=== PATIENT | female | born 1995 | race Caucasian/White ===

== ENCOUNTER 2017-08-03 12:35 | Emergency (ER) | payer OTHER ==
[~2017-08-03] VITALS: Ht 154.9 cm; Wt 63.5 kg
[~2017-08-03 12:35] MED LIST: AMOXICILLIN 50500 MG PO; LORATIDINE 10 M10 M1 PO; PROAIR HFA8.5 GM INH; PROMETHAZINE V473 ML PO
[2017-08-03] MEDS ORDERED: NEXPLANON68 MG SUBQ (12:44)
[2017-08-03 13:28] LABS: URINE BILIRUBIN NEGATIVE (Negative); URINE BLOOD TRACE (Negative); URINE CLARITY CLEAR; URINE COLOR YELLOW; URINE GLUCOSE-RANDOM NEGATIVE (Negative); URINE KETONES NEGATIVE (Negative); URINE NITRITE-REFLEX NEGATIVE (Negative); URINE PROTEIN NEGATIVE (Negative); URINE UROBILINOGEN 0.2 E.U./dl (0.2-1.0)
[2017-08-03 13:32] LABS: URINE LEUKOCYTES-REFLEX 2+ (Negative)
[2017-08-03] MEDS ORDERED: BACTRIM DS TAB1 EACH PO (13:36)
[2017-08-03] MEDS ORDERED: NAPROSYN500 MG PO (13:36)
[2017-08-03] MEDS ORDERED: FLEXERIL PO (13:36)
[2017-08-03 13:39] LABS: SQUAMOUS >10 Many /LPF (0-3)
[2017-08-03 13:41] LABS: BACTERIA-REFLEX 1-9 Few /HPF (None Seen); CASTS None Seen /LPF (None Seen); MUCUS 4-6 Moderate strn/LPF (None Seen); URINE RBC 3-10 Few /HPF (0-2); URINE WBC-REFLEX 6-15 Few /HPF (0-5)
[2017-08-03 13:42] LABS: CRYSTALS None Seen /LPF (None Seen)
[2017-08-03 13:52] VITALS: BP 128/64
== END 2017-08-03 13:53 | disposition home or self-care (01) ==
LOC: M.ERS 12:35
PROVIDERS: Nurse Practitioner Family
DX: N30.90 Cystitis, unspecified without hematuria (principal); S39.012A Strain of muscle, fascia and tendon of lower back, initial encounter; A59.9 Trichomoniasis, unspecified; Z90.89 Acquired absence of other organs; X50.0XXA Overexertion from strenuous movement or load, initial encounter; Y93.89 Activity, other specified; Y92.89 Other specified places as the place of occurrence of the external cause; Y99.8 Other external cause status

== ENCOUNTER 2017-11-08 17:48 | Emergency (ER) | payer OTHER ==
[~2017-11-08] VITALS: Ht 154.9 cm; Wt 59.0 kg
[~2017-11-08 17:48] MED LIST changes: +BACTRIM DS TAB1 EACH PO; +FLEXERIL PO; +NAPROSYN500 MG PO; +NEXPLANON68 MG SUBQ
[2017-11-08 18:10] LABS: ABSOLUTE BASOPHILS 0.1 thou/uL (0.0-0.2); ABSOLUTE EOSINOPHILS 0.2 thou/uL (0.0-0.7); ABSOLUTE LYMPHOCYTES 3.4 thou/uL (0.8-5.3); ABSOLUTE MONOCYTES 0.7 thou/uL (0.0-1.2); ABSOLUTE NEUTROPHILS 5.1 thou/uL (1.6-8.1); BASOPHILS 0.6 %; HEMATOCRIT 43.8 % (37.0-47.0); HEMOGLOBIN 14.8 gm/dL (12.0-15.0); LYMPHOCYTES 35.7 %; MCH 27.9 pg (26.0-34.0); MCHC 33.8 g/dL (28.0-37.0); MCV 82.4 fL (80.0-100.0); MONOCYTES 7.3 %; MPV 9.2 fl. (7.2-11.1); NUCLEATED RBCS 0 /100WBC; PLATELET COUNT* 296 thou/uL (150-400); POLYS 54.4 %; RBC 5.31 mil/uL (4.20-5.00); RDW-CV 13.2 % (10.5-14.5); WBC 9.5 thou/uL (4.0-11.0)
[2017-11-08 18:15] LABS: URINE BILIRUBIN NEGATIVE (Negative); URINE BLOOD 3+ (Negative); URINE CLARITY CLEAR; URINE COLOR YELLOW; URINE GLUCOSE-RANDOM NEGATIVE (Negative); URINE KETONES NEGATIVE (Negative); URINE LEUKOCYTES-REFLEX NEGATIVE (Negative); URINE NITRITE-REFLEX NEGATIVE (Negative); URINE PROTEIN NEGATIVE (Negative); URINE UROBILINOGEN 0.2 E.U./dl (0.2-1.0)
[2017-11-08 18:15] LABS: CALCIUM 8.3 mg/dL (8.5-10.1); CREATININE 0.6 mg/dL (0.6-1.3); POTASSIUM 3.5 mmol/L (3.5-5.1)
[2017-11-08 18:20] LABS: ALBUMIN 3.8 g/dL (3.4-5.0); TOTAL BILIRUBIN 0.4 mg/dL (<0.1-1.0)
[2017-11-08 18:35] LABS: CASTS None Seen /LPF (None Seen); CRYSTALS None Seen /LPF (None Seen); SQUAMOUS 0-3 Few /LPF (0-3); URINE RBC 3-10 Few /HPF (0-2); URINE WBC-REFLEX 0-5 Rare /HPF (0-5)
[2017-11-08 18:45] LABS: BACTERIA-REFLEX 1-9 Few /HPF (None Seen)
[2017-11-08 19:03] VITALS: BP 127/87
== END 2017-11-08 19:03 | disposition home or self-care (01) ==
LOC: M.ERS 17:48
PROVIDERS: Physician Assistant
DX: N93.9 Abnormal uterine and vaginal bleeding, unspecified (principal); Z91.010 Allergy to peanuts

== ENCOUNTER 2018-03-07 23:07 | Emergency (ER) | payer OTHER ==
[~2018-03-07] VITALS: Ht 154.9 cm; Wt 68.0 kg
[2018-03-08 00:54] LABS: ABSOLUTE BASOPHILS 0.1 thou/uL (0.0-0.2); ABSOLUTE EOSINOPHILS 0.2 thou/uL (0.0-0.7); ABSOLUTE LYMPHOCYTES 3.4 thou/uL (0.8-5.3); ABSOLUTE MONOCYTES 0.7 thou/uL (0.0-1.2); ABSOLUTE NEUTROPHILS 6.1 thou/uL (1.6-8.1); BASOPHILS 0.5 %; EOSINOPHILS 2.4 %; HEMATOCRIT 41.2 % (37.0-47.0); HEMOGLOBIN 13.8 gm/dL (12.0-15.0); LYMPHOCYTES 32.3 %; MCH 27.6 pg (26.0-34.0); MCHC 33.4 g/dL (28.0-37.0); MCV 82.6 fL (80.0-100.0); MPV 8.7 fl. (7.2-11.1); NUCLEATED RBCS 0 /100WBC; PLATELET COUNT* 311 thou/uL (150-400); POLYS 57.8 %; RBC 4.98 mil/uL (4.20-5.00); RDW-CV 13.1 % (10.5-14.5); WBC 10.5 thou/uL (4.0-11.0)
[2018-03-08 01:03] LABS: CALCIUM 8.7 mg/dL (8.5-10.1); CREATININE 0.7 mg/dL (0.6-1.3); POTASSIUM 3.8 mmol/L (3.5-5.1)
[2018-03-08 01:08] LABS: URINE BILIRUBIN NEGATIVE (Negative); URINE BLOOD NEGATIVE (Negative); URINE CLARITY CLEAR; URINE COLOR YELLOW; URINE GLUCOSE-RANDOM NEGATIVE (Negative); URINE KETONES NEGATIVE (Negative); URINE NITRITE-REFLEX NEGATIVE (Negative); URINE PROTEIN NEGATIVE (Negative); URINE UROBILINOGEN 0.2 E.U./dl (0.2-1.0)
[2018-03-08 01:08] LABS: ALBUMIN 3.7 g/dL (3.4-5.0); TOTAL BILIRUBIN 0.3 mg/dL (<0.1-1.0)
[2018-03-08 01:10] LABS: URINE LEUKOCYTES-REFLEX 2+ (Negative)
[2018-03-08 01:51] LABS: CASTS None Seen /LPF (None Seen); SQUAMOUS 4-10 Moderate /LPF (0-3); URINE WBC-REFLEX 6-15 Few /HPF (0-5)
[2018-03-08 01:52] LABS: BACTERIA-REFLEX 1-9 Few /HPF (None Seen); CRYSTALS None Seen /LPF (None Seen); URINE RBC 0-2 Rare /HPF (0-2)
[2018-03-08] MEDS ORDERED: KEFLEX500 M1 PO (02:40)
[2018-03-08] MEDS ORDERED: SYNTHROID50 MCG PO (02:40)
[2018-03-08 02:52] VITALS: BP 138/77
== END 2018-03-08 02:52 | disposition home or self-care (01) ==
LOC: M.ERS 23:07
PROVIDERS: Personal Emergency Response Attendant
DX: E03.9 Hypothyroidism, unspecified (principal); N39.0 Urinary tract infection, site not specified; Z91.010 Allergy to peanuts

== ENCOUNTER 2018-04-10 16:56 | Emergency (ER) | payer OTHER ==
[~2018-04-10] VITALS: Ht 154.9 cm; Wt 63.5 kg
[~2018-04-10 16:56] MED LIST changes: +KEFLEX500 M1 PO; +SYNTHROID50 MCG PO
[2018-04-10] MEDS ORDERED: TESSALON PERLE100 MG PO (17:15)
[2018-04-10] MEDS ORDERED: PROMETHAZINE V473 ML PO (17:15)
[2018-04-10] MEDS ORDERED: ZPAK PO (17:15)
[2018-04-10] MEDS ORDERED: MEDROLDOSEPACK PO (17:15)
[2018-04-10 17:20] VITALS: BP 142/94
== END 2018-04-10 17:21 | disposition home or self-care (01) ==
LOC: M.ERS 16:56
DX: J01.90 Acute sinusitis, unspecified (principal)

== ENCOUNTER 2018-04-12 22:41 | Emergency (ER) | payer OTHER ==
[~2018-04-12] VITALS: Ht 154.9 cm; Wt 63.5 kg
[~2018-04-12 22:41] MED LIST changes: +MEDROLDOSEPACK PO; +TESSALON PERLE100 MG PO; +ZPAK PO
[2018-04-12 23:02] LABS: URINE BILIRUBIN NEGATIVE (Negative); URINE BLOOD NEGATIVE (Negative); URINE CLARITY CLEAR; URINE COLOR YELLOW; URINE GLUCOSE-RANDOM NEGATIVE (Negative); URINE KETONES NEGATIVE (Negative); URINE LEUKOCYTES-REFLEX NEGATIVE (Negative); URINE NITRITE-REFLEX NEGATIVE (Negative); URINE PROTEIN NEGATIVE (Negative); URINE SPECIFIC GRAVITY 1.015 (1.005-1.030); URINE UROBILINOGEN 0.2 E.U./dl (0.2-1.0)
[2018-04-12 23:25] LABS: HEMATOCRIT 39.8 % (37.0-47.0); HEMOGLOBIN 13.2 gm/dL (12.0-15.0); MCH 27.4 pg (26.0-34.0); MCHC 33.1 g/dL (28.0-37.0); MCV 82.7 fL (80.0-100.0); MPV 8.7 fl. (7.2-11.1); NUCLEATED RBCS 0 /100WBC; PLATELET COUNT* 350 thou/uL (150-400); RBC 4.82 mil/uL (4.20-5.00); WBC 20.2 thou/uL (4.0-11.0)
[2018-04-12 23:45] LABS: CALCIUM 8.6 mg/dL (8.5-10.1); CREATININE 0.6 mg/dL (0.6-1.3); POTASSIUM 3.3 mmol/L (3.5-5.1)
[2018-04-12 23:50] LABS: ALBUMIN 3.5 g/dL (3.4-5.0); TOTAL BILIRUBIN 0.2 mg/dL (<0.1-1.0); TOTAL PROTEIN 6.9 g/dL (6.4-8.2)
[2018-04-13 00:25] LABS: ABSOLUTE LYMPHOCYTES 5.1 thou/uL (0.8-5.3); ABSOLUTE MONOCYTES 1.8 thou/uL (0.0-1.2); ABSOLUTE NEUTROPHILS 13.3 thou/uL (1.6-8.1); PLATELET ESTIMATE ADEQUATE
[2018-04-13 00:26] LABS: TOXIC GRANULATION 1+
[2018-04-13] MEDS ORDERED: ZOFRAN ODT4 MG DISSOLVE (00:38)
[2018-04-13] MEDS ORDERED: BENTYL 20 MG TA20 M1 PO (00:38)
[2018-04-13 00:59] VITALS: BP 122/78
== END 2018-04-13 00:59 | disposition home or self-care (01) ==
LOC: M.ERS 22:41
PROVIDERS: Emergency Medicine Emergency Medical Services
DX: R10.31 Right lower quadrant pain (principal); R11.10 Vomiting, unspecified; R19.7 Diarrhea, unspecified

== ENCOUNTER 2018-04-26 11:40 | Emergency (ER) | payer OTHER ==
[~2018-04-26] VITALS: Ht 154.9 cm; Wt 63.5 kg
[~2018-04-26 11:40] MED LIST changes: +BENTYL 20 MG TA20 M1 PO; +ZOFRAN ODT4 MG DISSOLVE
[2018-04-26] MEDS ORDERED: SYNTHROID50 MCG PO (11:52)
[2018-04-26 11:55] LABS: URINE BILIRUBIN NEGATIVE (Negative); URINE BLOOD NEGATIVE (Negative); URINE CLARITY CLEAR; URINE COLOR YELLOW; URINE GLUCOSE-RANDOM NEGATIVE (Negative); URINE KETONES NEGATIVE (Negative); URINE LEUKOCYTES-REFLEX 1+ (Negative); URINE NITRITE-REFLEX NEGATIVE (Negative); URINE PROTEIN NEGATIVE (Negative); URINE SPECIFIC GRAVITY <= 1.005 (1.005-1.030); URINE UROBILINOGEN 0.2 E.U./dl (0.2-1.0)
[2018-04-26 12:17] LABS: SQUAMOUS 4-10 Moderate /LPF (0-3); URINE WBC-REFLEX 0-5 Rare /HPF (0-5)
[2018-04-26 12:17] LABS: ABSOLUTE BASOPHILS 0.1 thou/uL (0.0-0.2); ABSOLUTE EOSINOPHILS 0.2 thou/uL (0.0-0.7); ABSOLUTE LYMPHOCYTES 3.2 thou/uL (0.8-5.3); ABSOLUTE MONOCYTES 0.7 thou/uL (0.0-1.2); ABSOLUTE NEUTROPHILS 6.8 thou/uL (1.6-8.1); BASOPHILS 0.7 %; EOSINOPHILS 1.8 %; HEMATOCRIT 42.8 % (37.0-47.0); HEMOGLOBIN 14.5 gm/dL (12.0-15.0); LYMPHOCYTES 28.9 %; MCHC 33.9 g/dL (28.0-37.0); MCV 82.6 fL (80.0-100.0); MONOCYTES 6.6 %; MPV 8.6 fl. (7.2-11.1); NUCLEATED RBCS 0 /100WBC; PLATELET COUNT* 315 thou/uL (150-400); RBC 5.18 mil/uL (4.20-5.00); RDW-CV 13.2 % (10.5-14.5)
[2018-04-26 12:18] LABS: BACTERIA-REFLEX 1-9 Few /HPF (None Seen); CASTS None Seen /LPF (None Seen); CRYSTALS None Seen /LPF (None Seen); MUCUS None Seen strn/LPF (None Seen); URINE RBC 0-2 Rare /HPF (0-2)
[2018-04-26 12:25] LABS: CALCIUM 8.7 mg/dL (8.5-10.1); CREATININE 0.6 mg/dL (0.6-1.3); POTASSIUM 3.5 mmol/L (3.5-5.1)
[2018-04-26 12:29] LABS: ALBUMIN 3.7 g/dL (3.4-5.0); TOTAL BILIRUBIN 0.3 mg/dL (<0.1-1.0); TOTAL PROTEIN 7.3 g/dL (6.4-8.2)
[2018-04-26] MEDS ORDERED: PRENATAL PO (13:33)
[2018-04-26 13:42] VITALS: BP 139/56
== END 2018-04-26 13:42 | disposition home or self-care (01) ==
LOC: M.ERS 11:40
PROVIDERS: Physician Assistant
DX: O26.891 Other specified pregnancy related conditions, first trimester (principal); R10.30 Lower abdominal pain, unspecified; Z32.01 Encounter for pregnancy test, result positive; R51 Headache; F32.9 Major depressive disorder, single episode, unspecified; M41.9 Scoliosis, unspecified; Z91.010 Allergy to peanuts; Z3A.00 Weeks of gestation of pregnancy not specified

== ENCOUNTER 2018-06-16 13:24 | Emergency (ER) | payer OTHER, MEDICAID ==
[~2018-06-16] VITALS: Ht 154.9 cm; Wt 62.6 kg
[~2018-06-16 13:24] MED LIST changes: +PRENATAL PO
[2018-06-16 14:08] LABS: ABSOLUTE LYMPHOCYTES 1.2 thou/uL (0.8-5.3); ABSOLUTE MONOCYTES 0.5 thou/uL (0.0-1.2); ABSOLUTE NEUTROPHILS 4.9 thou/uL (1.6-8.1); BASOPHILS 0.3 %; EOSINOPHILS 0.7 %; HEMATOCRIT 39.7 % (37.0-47.0); HEMOGLOBIN 13.7 gm/dL (12.0-15.0); LYMPHOCYTES 17.4 %; MCHC 34.6 g/dL (28.0-37.0); MCV 83.8 fL (80.0-100.0); MPV 9.1 fl. (7.2-11.1); NUCLEATED RBCS 0 /100WBC; PLATELET COUNT* 210 thou/uL (150-400); POLYS 73.6 %; RBC 4.73 mil/uL (4.20-5.00); RDW-CV 13.5 % (10.5-14.5); WBC 6.6 thou/uL (4.0-11.0)
[2018-06-16 14:10] LABS: URINE BILIRUBIN NEGATIVE (Negative); URINE BLOOD NEGATIVE (Negative); URINE CLARITY CLEAR; URINE COLOR YELLOW; URINE GLUCOSE-RANDOM NEGATIVE (Negative); URINE KETONES NEGATIVE (Negative); URINE LEUKOCYTES-REFLEX NEGATIVE (Negative); URINE NITRITE-REFLEX NEGATIVE (Negative); URINE PROTEIN NEGATIVE (Negative); URINE UROBILINOGEN 0.2 E.U./dl (0.2-1.0)
[2018-06-16 14:14] LABS: CREATININE 0.6 mg/dL (0.6-1.3); POTASSIUM 3.3 mmol/L (3.5-5.1)
[2018-06-16 14:23] LABS: ALBUMIN 3.1 g/dL (3.4-5.0); TOTAL BILIRUBIN 0.4 mg/dL (<0.1-1.0); TOTAL PROTEIN 6.9 g/dL (6.4-8.2)
[2018-06-16] MEDS ORDERED: DICLEGIS DR 101 EACH PO (14:34)
[2018-06-16 14:45] VITALS: BP 109/66
== END 2018-06-16 14:45 | disposition home or self-care (01) ==
LOC: M.ERS 13:24
PROVIDERS: Nurse Practitioner Family
DX: O26.891 Other specified pregnancy related conditions, first trimester (principal); Z3A.11 11 weeks gestation of pregnancy; R11.2 Nausea with vomiting, unspecified; B34.9 Viral infection, unspecified

== ENCOUNTER 2018-07-11 18:07 | Emergency (ER) | payer OTHER, MEDICAID ==
[~2018-07-11] VITALS: Ht 154.9 cm; Wt 63.5 kg
[~2018-07-11 18:07] MED LIST changes: +DICLEGIS DR 101 EACH PO
[2018-07-11 18:43] LABS: URINE BILIRUBIN NEGATIVE (Negative); URINE BLOOD NEGATIVE (Negative); URINE CLARITY CLEAR; URINE COLOR YELLOW; URINE GLUCOSE-RANDOM NEGATIVE (Negative); URINE KETONES NEGATIVE (Negative); URINE LEUKOCYTES-REFLEX TRACE (Negative); URINE NITRITE-REFLEX NEGATIVE (Negative); URINE PROTEIN NEGATIVE (Negative); URINE SPECIFIC GRAVITY <= 1.005 (1.005-1.030); URINE UROBILINOGEN 0.2 E.U./dl (0.2-1.0)
[2018-07-11 18:56] LABS: MUCUS None Seen strn/LPF (None Seen); SQUAMOUS 4-10 Moderate /LPF (0-3); URINE WBC-REFLEX 0-5 Rare /HPF (0-5)
[2018-07-11 18:57] LABS: CASTS None Seen /LPF (None Seen); CRYSTALS None Seen /LPF (None Seen); URINE RBC None Seen /HPF (0-2)
[2018-07-11 19:34] VITALS: BP 107/70
== END 2018-07-11 19:35 | disposition home or self-care (01) ==
LOC: M.ERS 18:07
PROVIDERS: Physician Assistant
DX: O26.899 Other specified pregnancy related conditions, unspecified trimester (principal); Z11.3 Encounter for screening for infections with a predominantly sexual mode of transmission; F32.9 Major depressive disorder, single episode, unspecified; M41.9 Scoliosis, unspecified; Z91.010 Allergy to peanuts; Z3A.00 Weeks of gestation of pregnancy not specified

== ENCOUNTER 2020-03-16 20:18 | Observation (INO) | payer OTHER ==
[~2020-03-16] VITALS: Ht 154.9 cm; Wt 122.9 kg
[2020-03-16 20:24] VITALS: BP 134/45
[2020-03-16 20:58] LABS: ABSOLUTE BASOPHILS 0.1 thou/uL (0.0-0.2); ABSOLUTE EOSINOPHILS 0.3 thou/uL (0.0-0.7); ABSOLUTE LYMPHOCYTES 2.7 thou/uL (0.8-5.3); ABSOLUTE MONOCYTES 0.7 thou/uL (0.0-1.2); ABSOLUTE NEUTROPHILS 6.2 thou/uL (1.6-8.1); BASOPHILS 0.6 %; EOSINOPHILS 3.2 %; HEMATOCRIT 35.9 % (37.0-47.0); HEMOGLOBIN 12.2 gm/dL (12.0-15.0); LYMPHOCYTES 26.8 %; MCH 29.4 pg (26.0-34.0); MCV 86.3 fL (80.0-100.0); MONOCYTES 7.4 %; MPV 8.4 fl. (7.2-11.1); NUCLEATED RBCS 0 /100WBC; PLATELET COUNT* 274 thou/uL (150-400); RBC 4.16 mil/uL (4.20-5.00); RDW-CV 14.1 % (10.5-14.5)
[2020-03-16 21:04] LABS: CALCIUM 8.1 mg/dL (8.5-10.1); CREATININE 0.7 mg/dL (0.6-1.3)
[2020-03-16 21:06] LABS: POTASSIUM 2.8 mmol/L (3.5-5.1)
[2020-03-16 21:08] LABS: ALBUMIN 3.7 g/dL (3.4-5.0); TOTAL BILIRUBIN 0.3 mg/dL (<0.1-1.0); TOTAL PROTEIN 6.5 g/dL (6.4-8.2)
[2020-03-16 22:45] LABS: URINE BILIRUBIN NEGATIVE (Negative); URINE BLOOD NEGATIVE (Negative); URINE CLARITY CLEAR; URINE COLOR YELLOW; URINE GLUCOSE-RANDOM NEGATIVE (Negative); URINE KETONES NEGATIVE (Negative); URINE NITRITE-REFLEX NEGATIVE (Negative); URINE PROTEIN NEGATIVE (Negative); URINE SPECIFIC GRAVITY 1.015 (1.005-1.030); URINE UROBILINOGEN 0.2 E.U./dl (0.2-1.0)
[2020-03-16 22:47] LABS: URINE LEUKOCYTES-REFLEX 2+ (Negative)
[2020-03-16 22:54] LABS: AMP/METHAMP Negative (Negative); BACTERIA-REFLEX >30 Many /HPF (None Seen); BARBITURATES Negative (Negative); BENZODIAZEPINES Negative (Negative); CASTS None Seen /LPF (None Seen); COCAINE POSITIVE (Negative); CRYSTALS None Seen /LPF (None Seen); METHADONE Negative (Negative); MUCUS >6 Heavy strn/LPF (None Seen); OPIATES Negative (Negative); PCP Negative (Negative); SQUAMOUS >10 Many /LPF (0-3); THC POSITIVE (Negative); TRANSITIONAL EPITHEL CELL 4-10 Moderate /LPF (None Seen); URINE RBC 3-10 Few /HPF (0-2)
[2020-03-16] MEDS ORDERED: LEVO-T25 MCG PO (23:20)
[2020-03-16 23:23] VITALS: BP 117/66
[2020-03-17 04:09] VITALS: BP 119/68
[2020-03-17 08:03] VITALS: BP 118/58
[2020-03-17 08:43] LABS: CALCIUM 8.6 mg/dL (8.5-10.1); CREATININE 0.6 mg/dL (0.6-1.3); MAGNESIUM 1.9 mg/dL (1.8-2.4); PHOSPHORUS* 2.5 mg/dL (2.5-4.9); POTASSIUM 3.6 mmol/L (3.5-5.1)
--- NOTE | 2020-03-17 10:19 | EKG ---
[place] [address] ELECTROCARDIOGRAM REPORT Name: PRASAD CARRION Room: [address]R.#: [id number] Admission: 03/16/20 Attend Phys: Zunilda Garcia, Discharge: Date of : [birth year] Date of Service: 03/16/202048 Report #: [id number] THIS REPORT FOR: //name// [facility] ED Test Date: 2020-03-16 Test Time: 20:49:33 Pat Name: PRASAD CARRION Department: Room: [facility] Gender: F [employer]: ID : [id number] Requested By: Slim Mcmahon Order Number: [id number] MD: Mihai Ibanez Measurements Intervals [place] Rate: 73 P: 23 CO: 123 QRS: 84 QRSD: 94 T: 63 QT: 357 QTc: 394 Interpretive Statements Sinus rhythm No previous ECG available for comparison Electronically Signed On 03-17-2020 10:19:27 ENAMEL BUFFER by Mihai Ibanez [email or web address] <ELECTRONICALLY SIGNED> By: Mihai Ibanez MD, [facility] 03/17/20 1019 48 48 Mihai Ibanez MD, FACC /EPI
--- NOTE | 2020-03-17 10:48 | NUR ---
ADMISSION COMPLETED IN ER. DISCHARGING FROM ER AFTER ADMISSION.
[2020-03-17 11:21] VITALS: BP 118/58
[2020-03-17 11:50] VITALS: BP 130/62
== END 2020-03-17 12:19 | disposition home or self-care (01) ==
LOC: M.ERS 20:18 → M.TBA-ER 22:07
PROVIDERS: Emergency Medicine Emergency Medical Services; Internal Medicine; ADMIT Internal Medicine; ATTEND Internal Medicine
DX: E87.6 Hypokalemia (principal); J02.9 Acute pharyngitis, unspecified; E83.42 Hypomagnesemia; E03.9 Hypothyroidism, unspecified; F32.9 Major depressive disorder, single episode, unspecified; Z79.899 Other long term (current) drug therapy; Z20.828 Contact with and (suspected) exposure to other viral communicable diseases

== ENCOUNTER 2020-03-23 10:36 | Emergency (ER) | payer OTHER ==
[~2020-03-23] VITALS: Ht 154.9 cm; Wt 56.7 kg
[~2020-03-23 10:36] MED LIST changes: +LEVO-T25 MCG PO
[2020-03-23] MEDS ORDERED: AMOXICILLIN 50500 MG PO (13:00)
[2020-03-23] MEDS ORDERED: NORCO 5-325 TA1 EAC2 PO (13:00)
[2020-03-23 13:15] VITALS: BP 130/80
--- NOTE | 2020-03-24 16:33 | EKG ---
[place] [address] ELECTROCARDIOGRAM REPORT Name: MURALIPRASAD Room: [facility]#: [id number] Admission: 03/23/20 Attend Phys: Discharge: 03/23/20 Date of : [birth year] Date of Service: 03/23/20 1043 Report #: [id number] THIS REPORT FOR: //name// 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: DS : 1995 Requested By: Tiago Mancilla Order Number: [id number] MD: Leonel Henry Measurements Intervals [place] Rate: 94 P: 47 CA: 123 QRS: 83 QRSD: 86 T: 53 QT: 333 QTc: 417 Interpretive Statements Sinus rhythm Compared to ECG 03/16/2020 20:49:33 No significant changes Electronically Signed On 03-24-2020 16:33:44 [employer] by Leonel Henry [email or web address] <ELECTRONICALLY SIGNED> By: Leonel Henry MD, [facility] 03/24/20 1633 1043 1043 Leonel Henry MD, [facility] /EPI
== END 2020-03-23 13:52 | disposition home or self-care (01) ==
LOC: M.ERS 10:36
DX: K04.7 Periapical abscess without sinus (principal); E03.9 Hypothyroidism, unspecified; M41.9 Scoliosis, unspecified; Z98.890 Other specified postprocedural states

== ENCOUNTER 2020-05-30 11:37 | Emergency (ER) | payer OTHER ==
[~2020-05-30] VITALS: Ht 154.9 cm; Wt 49.9 kg
[~2020-05-30 11:37] MED LIST changes: +NORCO 5-325 TA1 EAC2 PO
[2020-05-30 11:44] VITALS: BP 137/75
== END 2020-05-30 12:00 | disposition home or self-care (01) ==
LOC: M.ERS 11:37
DX: R07.89 Other chest pain (principal); E03.9 Hypothyroidism, unspecified; Z79.2 Long term (current) use of antibiotics; Z79.899 Other long term (current) drug therapy; Z91.010 Allergy to peanuts